=== PATIENT | female | born 1975 | race Caucasian/White ===

== ENCOUNTER 2016-10-29 07:05 | Observation (INO) | payer MEDICAID ==
[~2016-10-29] VITALS: Ht 167.6 cm; Wt 60.7 kg
[2016-10-29] MEDS ORDERED: SODIUM CHLORIDE 0.9% 1,000ML IVBOLUS ONE (07:30)
[2016-10-29] MEDS ORDERED: ONDANSETRON 2MG/ML, 2ML IVPush ONE (07:30)
[2016-10-29] MEDS ORDERED: SODIUM CHLORIDE FLUSH 10ML SYR IVF ONE (07:30)
[2016-10-29] MEDS ORDERED: MORPHINE SULFATE 4 MG/ML, 1ML IVPush PRN (07:30)
[2016-10-29] MEDS ORDERED: MORPHINE SULFATE 4 MG/ML, 1ML ONE (07:39)
[2016-10-29] MEDS ORDERED: ONDANSETRON 2MG/ML, 2ML ONE ×2 (07:39→10:16)
[2016-10-29 08:10] LABS: HEMOGLOBIN 11.8 g/dL (11.7-16.4)
[2016-10-29 08:11] LABS: BLOOD UREA NITROGEN 12 mg/dL (7-18)
[2016-10-29] MEDS ORDERED: FENTANYL PF 250 MCG/5ML ONE (09:30)
[2016-10-29] MEDS ORDERED: SODIUM CHLORIDE 0.9% 1,000 ML IV ONE (09:30)
[2016-10-29] MEDS ORDERED: MIDAZOLAM 1 MG/ML, 2ML ONE (09:31)
[2016-10-29] MEDS ORDERED: METOCLOPRAMIDE 5 MG/ML, 2ML IV PRN (10:00)
[2016-10-29] MEDS ORDERED: OXYcodone 5 MG/5 ML ORAL.SOL UDC PO PRN (10:00)
[2016-10-29] MEDS ORDERED: HYDROmorphone 1 MG/ML, 1ML IV PRN (10:00)
[2016-10-29] MEDS ORDERED: ACETAMINOPHEN 325 MG TABLET PO PRN (10:00)
[2016-10-29] MEDS ORDERED: PROMETHAZINE 25 MG/ML, 1ML IV PRN (10:00)
[2016-10-29] MEDS ORDERED: FENTANYL PF 100 MCG/2ML IV PRN (10:00)
[2016-10-29] MEDS ORDERED: ONDANSETRON 2MG/ML, 2ML IVPush PRN (10:00)
[2016-10-29] MEDS ORDERED: GLYCOPYRROLATE 0.2MG/1ML ONE (10:16)
[2016-10-29] MEDS ORDERED: SUCCINYLCHOLINE 20 MG/ML, 10ML ONE (10:16)
[2016-10-29] MEDS ORDERED: ROCURONIUM 10 MG/ML ONE (10:16)
[2016-10-29] MEDS ORDERED: PROPOFOL 10 MG/ML, 20ML ONE (10:16)
[2016-10-29] MEDS ORDERED: NEOSTIGMINE 1 MG/ML, 10ML ONE (10:16)
[2016-10-29] MEDS ORDERED: DEXAMETHASONE 4 MG/ML, 1ML ONE (10:16)
[2016-10-29] MEDS ORDERED: CEFAZOLIN 1,000 MG ONE (10:16)
[2016-10-29] MEDS ORDERED: BUPIVACAINE/PF-EPI 0.25% 1:200K ONE (10:19)
[2016-10-29] MEDS ORDERED: BUPIVACAINE/PF-EPI 0.25% 1:200K INFIL ONE (10:55)
[2016-10-29] MEDS ORDERED: OXYcodone 5 MG/5 ML ORAL.SOL UDC ONE (11:44)
[2016-10-29 14:00] VITALS: BP 100/64
[2016-10-29] MEDS ORDERED: morphine SULFATE 10 MG/ML, 1ML IV PRN (14:00)
[2016-10-29] MEDS ORDERED: ONDANSETRON 2MG/ML, 2ML IV PRN (14:00)
[2016-10-29] MEDS ORDERED: PROMETHAZINE 25 MG/ML, 1ML IV ONE (14:00)
[2016-10-29] MEDS: OXYcodone/APAP 5/325MG TABLET PO PRN ×2 (14:43→19:02)
[2016-10-29] MEDS ORDERED: ENOXAPARIN 40 MG/0.4 ML SQ ONE (15:00)
[2016-10-29] MEDS ORDERED: IBUPROFEN 600 MG TABLET PO SCH (16:00)
[2016-10-29 16:27] LABS: HEMOGLOBIN 10.6 g/dL (11.7-16.4)
[2016-10-29 19:04] LABS: HEMOGLOBIN 9.6 g/dL (11.7-16.4)
[2016-10-29] MEDS ORDERED: OXYC-302 PO (19:48)
[2016-10-29] MEDS ORDERED: IBUP-1222 PO (19:49)
[2016-10-29] MEDS ORDERED: DOCU-30 PO (19:49)
[2016-10-29] MEDS ORDERED: ASPI-496 PO (19:50)
[2016-10-29] MEDS ORDERED: FLU VACC QS2016-17 (36MOS+)UP/PF 0.5 ML IM-VACC ONE (20:30)
[2016-10-29 21:01] VITALS: BP 108/63
== END 2016-10-29 21:15 | disposition home or self-care (01) ==
LOC: ED 08:38 → EDIP 09:06 → 4NOR 13:30
PROVIDERS: ADMIT Obstetrics & Gynecology; ATTEND Obstetrics & Gynecology
DX: O00.10 Tubal pregnancy without intrauterine pregnancy (principal); O09.521 Supervision of elderly multigravida, first trimester; O26.899 Other specified pregnancy related conditions, unspecified trimester; K66.1 Hemoperitoneum; C95.90 Leukemia, unspecified not having achieved remission; D68.59 Other primary thrombophilia; N85.4 Malposition of uterus; I26.99 Other pulmonary embolism without acute cor pulmonale; Z3A.08 8 weeks gestation of pregnancy; Z23 Encounter for immunization; Z86.711 Personal history of pulmonary embolism; Z86.718 Personal history of other venous thrombosis and embolism; Z90.49 Acquired absence of other specified parts of digestive tract; Z98.51 Tubal ligation status
CPT/HCPCS: 36415; 59151; 76830; 80048; 81003; 82040; 84703; 85025; 86850; 86900; 88302; 88305; 90471; 90686; 96374; 96375; 96376; 99285; G0378; J0330; J0690; J1100; J2250; J2270; J2405; J2704; J2710; J3010; J7030; J3490